=== PATIENT | female | born 2000 | race Caucasian/White ===

== ENCOUNTER → 2021-01-31 | Outpatient (CLI) | payer OTHER ==
[~2021-01-31] MED LIST: BIRTH CONTROL PILLS; HYDR1TAB94 PO; Naprosyn375 MG PO; Voltaren100 GM TOP; Zofran Odt4 MG SL
== END | disposition home or self-care (01) ==
LOC: LAB SHORT 12:27 → LAB 12:27
DX: H93.11 Tinnitus, right ear (principal); H60.331 Swimmer's ear, right ear
CPT/HCPCS: 87070; 87077; 87186; 87205

== ENCOUNTER 2022-09-11 06:41 | Emergency (ER) | payer OTHER ==
[~2022-09-11] VITALS: Ht 170.2 cm; Wt 66.7 kg
== END 2022-09-11 07:34 | disposition home or self-care (01) ==
LOC: ER 06:41
DX: U07.1 COVID-19 (principal)
CPT/HCPCS: 71045

== ENCOUNTER 2022-11-19 12:14 | Emergency (ER) | payer OTHER ==
[~2022-11-19] VITALS: Ht 170.2 cm; Wt 65.8 kg
[2022-11-19 12:39] VITALS: BP 117/76
== END 2022-11-19 13:35 | disposition home or self-care (01) ==
LOC: ER 12:14
DX: R07.81 Pleurodynia (principal); F17.200 Nicotine dependence, unspecified, uncomplicated
CPT/HCPCS: 71100; 99283-25

== ENCOUNTER 2023-06-29 09:01 | Emergency (ER) | payer OTHER ==
[~2023-06-29] VITALS: Ht 167.6 cm; Wt 70.3 kg
[2023-06-29 10:00] LABS: U Amphetamine Screen Not Detected; U Barbituate Screen Not Detected; U Benzodiazapine Screen Not Detected; U Buprenorphine Screen Not Detected; U Cannabinoids Screen Not Detected; U Cocaine Screen Not Detected; U Methadone Screen Not Detected; U Methamphetamine Screen Not Detected; U Opiates Screen Not Detected; U Oxycodone Screen Not Detected; U Phencyclidine Screen Not Detected
[2023-06-29 10:25] VITALS: BP 117/75
== END 2023-06-29 10:23 | disposition home or self-care (01) ==
LOC: ER 09:01
PROVIDERS: Emergency Medicine
DX: R11.2 Nausea with vomiting, unspecified (principal); F10.90 Alcohol use, unspecified, uncomplicated
CPT/HCPCS: 81025; 99284